=== PATIENT | female | born 1990 ===

== ENCOUNTER 2017-10-01 09:09 | Emergency (ER) | payer OTHER ==
[~2017-10-01] VITALS: Ht 162.6 cm; Wt 56.7 kg
[2017-10-01] MEDS ORDERED: KETO10TA2 PO (13:19)
== END 2017-10-01 13:55 | disposition home or self-care (01) ==
LOC: ER 09:09
DX: R10.84 Generalized abdominal pain (principal); M54.89 Other dorsalgia

== ENCOUNTER 2018-12-26 14:45 | Inpatient (IN) | payer OTHER ==
[~2018-12-26] VITALS: Ht 162.6 cm; Wt 3.2 kg
[~2018-12-26 14:45] MED LIST: KETO10TA2 PO
[2019-01-01] MEDS ORDERED: PRENATABS RX T1 EACH PO (19:52)
== END 2019-01-04 15:05 | disposition home or self-care (01) | DRG 807 ==
LOC: LDR 01-01 17:17 → OB/GYN 01-02 20:32 → LDR 01-07 14:45
PROVIDERS: ADMIT Obstetrics & Gynecology
PROC: 3E0P7VZ Introduction of Hormone into Female Reproductive, Via Natural or Artificial Opening (ICD-10-PCS; 2019-01-01)
PROC: 4A1HXCZ Monitoring of Products of Conception, Cardiac Rate, External Approach (ICD-10-PCS; 2019-01-01)
PROC: 10E0XZZ Delivery of Products of Conception, External Approach (ICD-10-PCS; principal; 2019-01-02)
PROC: 0KQM0ZZ Repair Perineum Muscle, Open Approach (ICD-10-PCS; 2019-01-02)
PROC: 3E033VJ Introduction of Other Hormone into Peripheral Vein, Percutaneous Approach (ICD-10-PCS; 2019-01-02)
PROC: 10907ZC Drainage of Amniotic Fluid, Therapeutic from Products of Conception, Via Natural or Artificial Opening (ICD-10-PCS; 2019-01-02)
DX: O70.1 Second degree perineal laceration during delivery (principal); Z37.0 Single live birth; Z3A.38 38 weeks gestation of pregnancy